=== PATIENT | male | born 1970 | race Caucasian/White ===

== ENCOUNTER 2017-09-10 07:00 | Day surgery (SDC) | payer OTHER ==
[~2017-09-10 07:00] MED LIST: LIPITOR20 MG PO; METFORMIN HCL500 MG PO; SYNTHROID125 MCG PO
[2017-09-10] MEDS ORDERED: PERCOCET 5-3251 EACH PO (10:21)
== END 2017-09-10 13:35 | disposition home or self-care (01) ==
LOC: CIR.AMB 07:00
DX: D35.1 Benign neoplasm of parathyroid gland (principal); E21.0 Primary hyperparathyroidism